=== PATIENT | female | born 1935 | race Caucasian/White ===

== ENCOUNTER → 2021-04-28 | Outpatient (CLI) | payer OTHER | LOC: HYPER 08:07 | PROVIDERS: ATTEND Emergency Medicine | DX: L97.512 Non-pressure chronic ulcer of other part of right foot with fat layer exposed (principal); G60.3 Idiopathic progressive neuropathy; I73.9 Peripheral vascular disease, unspecified; I48.91 Unspecified atrial fibrillation; J44.9 Chronic obstructive pulmonary disease, unspecified; L84 Corns and callosities; M19.90 Unspecified osteoarthritis, unspecified site; M47.9 Spondylosis, unspecified; K51.819 Other ulcerative colitis with unspecified complications; Z79.82 Long term (current) use of aspirin; Z79.899 Other long term (current) drug therapy ==

== ENCOUNTER → 2021-04-30 | Outpatient (CLI) | payer OTHER | LOC: SJCVCIMAG 10:37 | PROVIDERS: ATTEND Emergency Medicine | DX: I70.203 Unspecified atherosclerosis of native arteries of extremities, bilateral legs (principal); L97.909 Non-pressure chronic ulcer of unspecified part of unspecified lower leg with unspecified severity; E78.00 Pure hypercholesterolemia, unspecified; I10 Essential (primary) hypertension; I48.91 Unspecified atrial fibrillation; J44.9 Chronic obstructive pulmonary disease, unspecified; Z87.891 Personal history of nicotine dependence; Z72.89 Other problems related to lifestyle; Z79.899 Other long term (current) drug therapy; Z88.5 Allergy status to narcotic agent ==

== ENCOUNTER → 2021-05-08 | Outpatient (CLI) | payer OTHER ==
[~2021-05-08] VITALS: Ht 162.6 cm; Wt 58.1 kg
[~2021-05-08] MED LIST: ACETAMINOPHEN500 M1 PO; BOOST237 ML PO; CARVEDILOL12.5 MG PO; CENTRUM SILVER1 EAC5 PO; CLOPIDOGREL75 MG PO; ECOTRIN325 MG PO; FLONASE 0.05%50 MCG NARES; HYDROCODON-ACE1 EA14 PO; NORVASC5 MG PO; OS-CAL 500+D31 EAC1 PO; OXYGEN NASAL; PROAIR HFA8.5 GM INH; ROSUVASTATIN CA10 MG PO; SINGULAIR 10 MG10 MG PO; TRELEGY ELLIPT1 EACH IH
[2021-05-08 07:53] VITALS: BP 171/65
[2021-05-08 08:07] LABS: HEMATOCRIT 39.4 % (37.0-47.0); MCHC 32.9 g/dL (28.0-37.0); MCV 91.1 fL (80.0-100.0); RBC 4.32 mil/uL (4.20-5.00); RDW 14.3 % (10.5-14.5); WBC 6.1 thou/uL (4.0-11.0)
[2021-05-08 08:16] LABS: CALCIUM 8.8 mg/dL (8.5-10.1); CREATININE 0.8 mg/dL (0.6-1.0)
== END | disposition home or self-care (01) ==
LOC: CATH 06:33
PROVIDERS: ATTEND Nuclear Medicine Nuclear Cardiology
DX: I70.213 Atherosclerosis of native arteries of extremities with intermittent claudication, bilateral legs (principal); I70.248 Atherosclerosis of native arteries of left leg with ulceration of other part of lower leg; L97.929 Non-pressure chronic ulcer of unspecified part of left lower leg with unspecified severity; I70.1 Atherosclerosis of renal artery; M79.604 Pain in right leg; M79.605 Pain in left leg; I10 Essential (primary) hypertension; E78.5 Hyperlipidemia, unspecified; J44.9 Chronic obstructive pulmonary disease, unspecified; Z98.890 Other specified postprocedural states; Z79.899 Other long term (current) drug therapy; Z79.01 Long term (current) use of anticoagulants; Z87.891 Personal history of nicotine dependence; Z86.73 Personal history of transient ischemic attack (TIA), and cerebral infarction without residual deficits; Z88.8 Allergy status to other drugs, medicaments and biological substances; Z87.19 Personal history of other diseases of the digestive system